=== PATIENT | female | born 1985 | race Caucasian/White ===

== ENCOUNTER 2018-12-20 11:47 | Emergency (ER) | payer MEDICAID ==
[2018-12-20 12:08] VITALS: BP 147/104
[2018-12-20] MEDS ORDERED: SODIUM CHLORIDE 0.9% 1,000 ML IV ONE (12:50)
[2018-12-20] MEDS ORDERED: IOVERSOL 320 100 ML VIAL IVP ONE (13:16)
--- NOTE | 2018-12-20 13:24 | ED Physician Documentation ---
PD HPI CHEST PAIN - Stated complaint Stated Complaint: WEAK/CHEST PAIN - Chief complaint Chief Complaint: Cardiac - History obtained from History obtained from: Patient - Additional information Additional information: The patient recently arrived into our area 1 day ago from [facility]. The patient was recently treated at their facility for endocarditis, the patient was supposed to have 6 weeks of IV antibiotics but the patient chose to leave the hospital AGAINST MEDICAL ADVICE and then continue to use heroin and subsequently came to our area. This is a 33-year-old female who presents to our emergency department with complaints of ongoing chest pain, dyspnea on exertion and generalized weakness over the past several weeks. The patient denies fevers or chills. The patient does report bilateral arm pain and reports having upper extremity blood clots and is not on any anticoagulation. Symptoms are described as severe. No other associated symptoms Review of Systems Constitutional: reports: Chills, Myalgias, Fatigue Eyes: denies: Discharge Ears: denies: Ear pain Nose: denies: Congestion Throat: denies: Sore throat Cardiac: reports: Chest pain / pressure Respiratory: reports: Dyspnea GI: denies: Abdominal Pain : denies: Dysuria Skin: denies: Laceration (s) Musculoskeletal: denies: Neck pain Neurologic: reports: Generalized weakness. denies: Focal weakness, Numbness, Difficulty speaking PD PAST MEDICAL HISTORY - Past Medical History Past Medical History: Yes Cardiovascular: Other Other Past Medical History: Hep C, endocarditis - Past Surgical History Past Surgical History: Yes HEENT: Tonsil/Adenoidectomy - Present Medications Home Medications: Ambulatory Orders Medication Instructions Recorded Confirmed No Known Home Medications 12/20/18 12/20/18 - Allergies Allergies/Adverse Reactions: Allergies Allergy/AdvReac Type Severity Reaction Status Date / Time No Known Drug Allergies Allergy Verified 12/20/18 12:07 - Social History Does the pt smoke?: Yes Smoking Status: Current every day smoker Does the pt drink ETOH?: No Does the pt have substance abuse?: Yes Substance Use and Type: Heroin - Immunizations Immunizations are current?: No PD ED PE NORMAL - General General: Alert and oriented X 3, No acute distress - HEENT HEENT: Atraumatic, PERRL, EOMI, Ears normal - Neck Neck: Supple, no meningeal sign - Cardiac Cardiac: RRR, Strong equal pulses - Respiratory Respiratory: No respiratory distress, Clear bilaterally - Abdomen Abdomen: Soft, Non tender - Back Back: No CVA TTP - Derm Derm: Normal color - Extremities Extremities: No deformity, Normal ROM s pain - Neuro Neuro: Alert and oriented X 3, No motor deficit, Normal speech - Psych Psych: Normal mood Results - Vitals Vitals: Vital Signs - 24 hr 12/20/18 12:04 Temperature 36 C L Heart Rate 108 H Respiratory 18 Rate Blood Pressure 147/104 H O2 Saturation 99 Oxygen O2 Source Room air - EKG (time done) 12:50 Rate: Rate (enter#) Rhythm: NSR [place]: Normal Intervals: Normal [place] QRS: Normal Ischemia: Normal ST segments - Labs Labs: Laboratory Tests 12/20/18 12/20/18 14:10 14:30 WBC 6.9 RBC 4.59 Hgb 13.3 Hct 39.1 MCV 85.1 MCH 29.1 MCHC 34.2 RDW 15.4 H Plt Count 110 L MPV 7.3 L Neut # (Auto) 3.7 Lymph # (Auto) 2.5 [place] # (Auto) 0.5 Eos # (Auto) 0.1 Baso # (Auto) 0.1 Absolute Nucleated RBC 0.00 Nucleated RBC % 0.1 PT 11.5 INR 1.0 PD MEDICAL DECISION MAKING - ED course ED course: Records were obtained from the hospital in [place] with the patient was treated. It appears that the patient did not have endocarditis on KEM, it was just suspected but had septic pulmonary embolisms from a right arm abscess which was drained and packed and MRSA Bacteremia. I discussed the case with our hospitalist Who recommends transfer to To a higher level of care given the patient's need for a PICC line, KEM and most likely ID consult and possibly a consultation by pulmonology or cardiothoracic surgery The patient Has poor venous access, numerous nurses attempted IV placement without success and the patient was seen by the anesthesia team who attempted IV access by ultrasound and had difficulty. The patient declined any further IV attempts or central line attempts. This obviously limited our ability to properly evaluate the patient in the emergency department. I discussed with the patient the plan for transfer to [facility] for further workup, PICC line placement and further management. The patient has decided to leave AGAINST MEDICAL ADVICE. I explained to her the reason for the workup and the importance of further testing to assess her condition and underlying issues to see if they have worsened or are improving. I explained that the patient will require ongoing IV antibiotics. I explained that I was in the process of talking with [facility] for transfer to their hospital given her complex condition for ongoing workup and management. The patient understands all this and has decided to leave our emergency department AGAINST MEDICAL ADVICE. The patient is of sound mind and her sister who is accompanying her is in agreement with this plan. I explained to her that without further treatment she is at risk for grave disability or . The patient understands and is capable of making this decision. I advised that she should return at any point for reevaluation Departure - Departure Disposition: 07 Against Medical Advice Clinical Impression: IVDU (intravenous drug user), Septic arterial embolism, MRSA bacteremia Chest pain Qualifiers: Chest pain type: unspecified Qualified Code(s): R07.9 - Chest pain, unspecified Condition: Fair Comments: You are leaving against my advice for further workup in the emergency department and transfer to another Medical Center for ongoing treatment of your multiple medical problems related to IV drug use. Please return at any point for reevaluation and further management. You understand that by leaving without further treatment and transfer you are risk for a worsening condition which if left untreated could result in significant disability or
[2018-12-20 14:15] LABS: BASOPHILS # (AUTO) 0.1 10^3/uL (0.0-0.1); BASOPHILS % (AUTO) 1.2 %; EOSINOPHILS # (AUTO) 0.1 10^3/uL (0.0-0.7); HGB - HEMOGLOBIN 13.3 g/dL (12.0-16.0); LYMPHOCYTES # (AUTO) 2.5 10^3/uL (1.5-3.5); LYMPHOCYTES % (AUTO) 36.8 %; MEAN CORPUSCULAR HEMOGLOBIN 29.1 pg (27.0-31.0); MEAN CORPUSCULAR HGB CONC 34.2 g/dL (32.0-36.0); MEAN CORPUSCULAR VOLUME 85.1 fL (81.0-99.0); MEAN PLATELET VOLUME 7.3 fL (7.9-10.8); MONOCYTES # (AUTO) 0.5 10^3/uL (0.0-1.0); MONOCYTES % (AUTO) 6.7 %; NEUTROPHILS # (AUTO) 3.7 10^3/uL (1.5-6.6); NEUTROPHILS % (AUTO) 54.3 %; PLT - PLATELET COUNT 110 10^3/uL (130-450); RED BLOOD COUNT 4.59 10^6/uL (4.20-5.40); RED CELL DISTRIBUTION WIDTH 15.4 % (12.0-15.0); WHITE BLOOD COUNT 6.9 x10^3/uL (4.8-10.8)
[2018-12-20 14:44] LABS: PT - PROTHROMBIN TIME 11.5 secs (9.9-12.6)
[2018-12-20 14:53] LABS: ALBUMIN 3.5 g/dL (3.2-5.5); ALBUMIN/GLOBULIN RATIO 0.7 (1.0-2.2); BILIRUBIN,TOTAL 0.5 mg/dL (0.2-1.0); CREATININE 0.6 mg/dL (0.4-1.0); TOTAL PROTEIN 8.2 g/dL (6.7-8.2)
[2018-12-20 15:02] LABS: HCG,QUALITATIVE BLOOD NEGATIVE
== END 2018-12-20 14:59 | disposition left against medical advice (07) ==
LOC: ED 11:47
DX: F11.90 Opioid use, unspecified, uncomplicated (principal); I76 Septic arterial embolism; A49.02 Methicillin resistant Staphylococcus aureus infection, unspecified site; R07.9 Chest pain, unspecified; B19.20 Unspecified viral hepatitis C without hepatic coma
CPT/HCPCS: 36415; 80053; 82550; 83605; 83690; 83880; 84484; 84703; 85025; 85610; 87040; 93005; 99282; 99284

== ENCOUNTER 2019-11-13 15:22 | Emergency (ER) | payer MEDICAID ==
[2019-11-13 15:36] VITALS: BP 126/85
--- NOTE | 2019-11-13 16:11 | ED Physician Documentation ---
PD HPI PED ILLNESS - Stated complaint Stated Complaint: SORE THROAT/COUGH - Chief complaint Chief Complaint: Heent - History obtained from History obtained from: Patient (Sick for 2 days with sore throat and cough, the whole family is sick with a similar illness. No fevers.) Review of Systems Constitutional: denies: Fever, Chills Nose: reports: Rhinorrhea / runny nose Throat: reports: Sore throat Respiratory: reports: Cough. denies: Dyspnea PD PAST MEDICAL HISTORY - Past Medical History Cardiovascular: Other - Past Surgical History Past Surgical History: Yes HEENT: Tonsil/Adenoidectomy - Present Medications Home Medications: Ambulatory Orders Medication Instructions Recorded Confirmed No Known Home Medications 12/20/18 12/20/18 - Allergies Allergies/Adverse Reactions: Allergies Allergy/AdvReac Type Severity Reaction Status Date / Time No Known Drug Allergies Allergy Verified 11/13/19 15:36 - Social History Does the pt smoke?: Yes Smoking Status: Current every day smoker Does the pt drink ETOH?: No Does the pt have substance abuse?: Yes - Immunizations Immunizations are current?: No PD ED PE NORMAL - Vitals Vital signs reviewed: Yes - General General: Alert and oriented X 3, No acute distress - HEENT HEENT: Other (Oropharynx normal, status post remote tonsillectomy) - Respiratory Respiratory: No respiratory distress, Clear bilaterally - Abdomen Abdomen: Non tender - Neuro Neuro: Alert and oriented X 3, Normal speech Results - Vitals Vitals: Vital Signs - 24 hr 11/13/19 15:32 Temperature 36.7 C Heart Rate 66 Respiratory 16 Rate Blood Pressure 126/85 H O2 Saturation 99 Oxygen O2 Source Room air - Labs Labs: Laboratory Tests 11/13/19 15:35 Group A Strep Rapid Negative Departure - Departure Disposition: Home, Self Care Clinical Impression: Viral URI Condition: Good Record reviewed to determine appropriate education?: Yes Instructions: ED Viral Syndrome Comments: Tylenol or ibuprofen as needed for pain, return for new or worsening symptoms. Follow-up with your doctor in a week if not better.
[2019-11-13 16:15] LABS: RAPID STREP SCREEN Negative (Negative)
== END 2019-11-13 16:41 | disposition home or self-care (01) ==
LOC: ED 15:22
DX: J06.9 Acute upper respiratory infection, unspecified (principal); F17.200 Nicotine dependence, unspecified, uncomplicated
CPT/HCPCS: 87070; 87430; 99282; 99283

== ENCOUNTER 2020-05-19 19:43 | Emergency (ER) | payer MEDICAID ==
[2020-05-19 19:52] VITALS: BP 147/92
[2020-05-19] MEDS ORDERED: BACITRACIN ZINC OINT 1 PACKET TOP STA (20:08)
[2020-05-19] MEDS ORDERED: LIDOCAINE 1%-EPI 1:100000 20 ML MDV SUBQ STA (20:08)
[2020-05-19] MEDS ORDERED: TETANUS/DIPHTHERIA/PERTUSSIS 0.5 ML SYRINGE IM ONE (20:08)
[2020-05-19] MEDS ORDERED: ACETAMINOPHEN 325 MG TABLET PO STA (20:14)
--- NOTE | 2020-05-19 20:22 | ED Physician Documentation ---
History of Present Illness - Stated complaint Stated Complaint: R FINGER LAC - Chief complaint Chief Complaint: Laceration - History obtained from History obtained from: Patient - History of Present Illness Timing: Prior to arrival, How many hours ago (2) - Additonal information Additional information: 34-year-old female presents to the emergency department with chief complaint of right index finger laceration. Patient reports that she was washing dishes when a glass broke at home.Unknown last tetanus. PD PAST MEDICAL HISTORY - Past Medical History Cardiovascular: Other - Past Surgical History Past Surgical History: Yes HEENT: Tonsil/Adenoidectomy - Present Medications Home Medications: Ambulatory Orders Medication Instructions Recorded Confirmed No Known Home Medications 12/20/18 12/20/18 - Allergies Allergies/Adverse Reactions: Allergies Allergy/AdvReac Type Severity Reaction Status Date / Time No Known Drug Allergies Allergy Verified 11/13/19 15:36 - Social History Does the pt smoke?: Yes Smoking Status: Current every day smoker Does the pt drink ETOH?: No Does the pt have substance abuse?: Yes - Immunizations Immunizations are current?: No PD ED PE EXPANDED - Extremities Extremities: Right finger(s) (V shaped lac Right index finger medial side. Measures approximately 4 cm long.Normal flexion and extension against resistance of digit at MCP, PIP and DIP.CMS T preserved. Brisk cap refill.) Results - Vitals Vitals: Vital Signs - 24 hr 05/19/20 19:48 Temperature 37.4 C Heart Rate 111 H Respiratory 18 Rate Blood Pressure 147/92 H O2 Saturation 97 Oxygen O2 Source Room air Procedures - Laceration (location) right index finger Wound type: Flap, Other (4 cm V shaped) Neurovascular status: Sensory intact, Motor intact, Vascular intact Tendon involvement: Tendon intact Anesthesia: Lidocaine 1% with epi Wound Preparation: Chlorhexadine, Irrigated copiously NS Skin layer closure: Nylon, Interrupted, Sutures - enter # (7) Other: Patient tolerated well, No complications, Neurovascular intact Complexity: Simple PD MEDICAL DECISION MAKING - ED course Complexity details: re-evaluated patient, d/w patient ED course: 4-year-old female here with a right index finger laceration sustained when washing dishes at home. A glass broke. - This is a V shaped flap black measuring about 4 cm. 7 simple interrupted sutures were placed to close the wound. - Patient is neurovascularly intact on exam without evidence of tendon or nerve injury. - Tetanus updated today in the emergency department. Given timely closure of the wound and clean appearance will defer any empiric antibiotics- Aluminum finger splint placed to help protect the laceration while it heals. We discussed emergent return precautions for concerns of infection. Sutures to be removed in 7 to 10 days. Departure - Departure Disposition: 01 Home, Self Care Clinical Impression: Finger laceration Qualifiers: Encounter type: initial encounter Finger: index finger Damage to nail status: without damage Foreign body presence: without foreign body Laterality: right Qualified Code(s): S61.210A - Laceration without foreign body of right index finger without damage to nail, initial encounter Condition: Stable Instructions: ED Laceration Repair Infec Comments: Tia you have 7 sutures placed in your laceration. In 24 hours you may wash your hand with warm soap and water. Apply the antibiotic ointment than the bandage and reapply the splint. Suture should be removed in 7 to 10 days. Please avoid submerging your hand and. Because this was closed in a timely fashion I do not recommend antibiotics today. Your tetanus was however updated. Return to the emergency department if you develop finger swelling, have increased pain, milky drainage finger redness or any fevers or other concerns of infection. You may take Tylenol or ibuprofen [id number] for pain control.
== END 2020-05-19 21:06 | disposition home or self-care (01) ==
LOC: ED 19:43
DX: S61.210A Laceration without foreign body of right index finger without damage to nail, initial encounter (principal); W25.XXXA Contact with sharp glass, initial encounter; Y93.G1 Activity, food preparation and clean up; Y92.000 Kitchen of unspecified non-institutional (private) residence as the place of occurrence of the external cause; Z23 Encounter for immunization; F17.200 Nicotine dependence, unspecified, uncomplicated
CPT/HCPCS: 12002; 90471; 90715; 99281; 99283; A9270

== ENCOUNTER 2020-05-29 18:19 | Emergency (ER) | payer MEDICAID ==
[2020-05-29 18:26] VITALS: BP 151/78
--- NOTE | 2020-05-29 18:40 | ED Physician Documentation ---
PD HPI WOUND RECHECK - Stated complaint Stated Complaint: SUTURE REMOVAL - Chief complaint Chief Complaint: Laceration - Histroy obtained from History obtained from: Patient - History of Present Illness Location: Other (R index finger 11 days ago) Pain level max: 0 Pain level now: 0 Associated symptoms: No: Fever, Redness, Swelling, Drainage, Pain - Additional information Additional information: Here for suture removal. No complaints Review of Systems Constitutional: denies: Fever PD PAST MEDICAL HISTORY - Past Medical History Cardiovascular: Other - Past Surgical History Past Surgical History: Yes HEENT: Tonsil/Adenoidectomy - Present Medications Home Medications: Ambulatory Orders Medication Instructions Recorded Confirmed No Known Home Medications 12/20/18 12/20/18 - Allergies Allergies/Adverse Reactions: Allergies Allergy/AdvReac Type Severity Reaction Status Date / Time No Known Drug Allergies Allergy Verified 05/29/20 18:23 - Social History Does the pt smoke?: Yes Smoking Status: Current every day smoker Does the pt drink ETOH?: No Does the pt have substance abuse?: Yes - Immunizations Immunizations are current?: No - POLST Patient has POLST: No PD ED PE NORMAL - Vitals Vital signs reviewed: Yes - General General: Alert and oriented X 3 - HEENT HEENT: Moist mucous membranes - Derm Derm: Warm and dry - Extremities Extremities: Other (Right index finger with a well-healed laceration. No signs of infection) Results - Vitals Vitals: Vital Signs - 24 hr 05/29/20 18:23 Temperature 36.6 C Heart Rate 67 Respiratory 16 Rate Blood Pressure 151/78 H O2 Saturation 99 Oxygen O2 Source Room air PD MEDICAL DECISION MAKING - ED course Complexity details: considered differential, d/w patient ED course: Sutures removed by nursing staff. Tolerated well. No complications. No signs of infection. Patient counseled regarding signs and symptoms for which I believe and urgent re-evaluation would be necessary. Patient with good understanding of and agreement to plan and is comfortable going home at this time This document was made in part using voice recognition software. While efforts are made to proofread this document, sound alike and grammatical errors may occur. Departure - Departure Disposition: 01 Home, Self Care Clinical Impression: Visit for suture removal Condition: Good Instructions: ED Stap Removal No Complication Follow-Up: your,doctor as needed [Other] Comments: Return if you notice redness swelling or drainage from the wound. Keep the wound clean. Discharge Date/Time: 05/29/20 18:52
== END 2020-05-29 18:52 | disposition home or self-care (01) ==
LOC: ED 18:19
DX: S61.210D Laceration without foreign body of right index finger without damage to nail, subsequent encounter (principal); F17.200 Nicotine dependence, unspecified, uncomplicated; Z48.02 Encounter for removal of sutures

== ENCOUNTER 2020-12-10 13:07 | Emergency (ER) | payer MEDICAID ==
[2020-12-10 13:12] VITALS: BP 162/99
[2020-12-10 13:30] LABS: BILIRUBIN,URINE NEGATIVE (NEGATIVE); GLUCOSE, URINE (UA) NEGATIVE (NEGATIVE); KETONES,URINE (UA) NEGATIVE (NEGATIVE); LEUKOCYTE ESTERASE, URINE SMALL (NEGATIVE); NITRITE,URINE POSITIVE (NEGATIVE); OCCULT BLOOD,URINE NEGATIVE (NEGATIVE); PROTEIN,URINE NEGATIVE (NEGATIVE); UROBILINOGEN,URINE 1 (NORMAL) E.U./dL (NORMAL)
[2020-12-10 13:36] LABS: CLARITY,URINE SL. CLOUDY (CLEAR); HCG UR QUAL NEGATIVE
[2020-12-10 13:37] LABS: BACTERIA,URINE Many /HPF (None Seen); RBC,URINE None Seen /HPF (0-5); SQUAMOUS EPITHELIAL CELL,UR FEW Squamous (<= Few)
--- NOTE | 2020-12-10 14:27 | ED Physician Documentation ---
History of Present Illness - Stated complaint Stated Complaint: FEMALE - Chief complaint Chief Complaint: UTI - History obtained from History obtained from: Patient - History of Present Illness Timing: How many weeks ago (2) Pain level max: 4 Pain level now: 1 - Additonal information Additional information: 34-year-old female presents to the emergency department complaint of dysuria for the past 2 weeks. Improved somewhat with Pyridium, but then recurred. No back pain. No nausea or vomiting. Denies any possibility of . No STD exposure. No vaginal bleeding or discharge. Review of Systems Constitutional: denies: Fever, Chills Respiratory: denies: Cough GI: denies: Vomiting, Diarrhea : reports: Dysuria, Frequency. denies: Now EGA PD PAST MEDICAL HISTORY - Past Medical History Cardiovascular: Other - Past Surgical History Past Surgical History: Yes HEENT: Tonsil/Adenoidectomy - Present Medications Home Medications: Ambulatory Orders Medication Instructions Recorded Confirmed Buprenorphine HCl/Naloxone HCl 1 each PO DAILY 12/10/20 12/10/20 [Suboxone 2-0.5 mg Sl tab] Nitrofurantoin Monohyd/M-Cryst 100 mg PO BID #10 capsule 12/10/20 [Macrobid 100 mg Capsule] Sertraline [Zoloft] 25 mg PO DAILY 12/10/20 12/10/20 - Allergies Allergies/Adverse Reactions: Allergies Allergy/AdvReac Type Severity Reaction Status Date / Time No Known Drug Allergies Allergy Verified 12/10/20 13:08 - Social History Does the pt smoke?: Yes Smoking Status: Current every day smoker Does the pt drink ETOH?: No Does the pt have substance abuse?: Yes - Immunizations Immunizations are current?: No - POLST Patient has POLST: No PD ED PE NORMAL - Vitals Vital signs reviewed: Yes - General General: Alert and oriented X 3, No acute distress, Well developed/nourished - HEENT HEENT: PERRL, Moist mucous membranes - Neck Neck: Supple, no meningeal sign - Respiratory Respiratory: No respiratory distress - Abdomen Abdomen: Soft, Non tender, Non distended - Back Back: No CVA TTP - Derm Derm: Warm and dry - Neuro Neuro: Alert and oriented X 3 - Psych Psych: Normal mood, Normal affect Results - Vitals Vitals: Vital Signs - 24 hr 12/10/20 13:09 Temperature 36.4 C L Heart Rate 86 Respiratory 18 Rate Blood Pressure 162/99 H O2 Saturation 98 Oxygen O2 Source Room air - Labs Labs: Laboratory Tests 12/10/20 13:23 Urine Color YELLOW Urine Clarity SL. CLOUDY Urine pH 6.0 Ur Specific [employer] >=1.030 H Urine Protein NEGATIVE Urine Glucose (UA) NEGATIVE Urine Ketones NEGATIVE Urine Occult Blood NEGATIVE Urine Nitrite POSITIVE H Urine Bilirubin NEGATIVE Urine Urobilinogen 1 (NORMAL) Ur Leukocyte Esterase SMALL H Urine RBC None Seen Urine WBC 0-3 Ur Squamous Epith Cells FEW Squamous Urine Bacteria Many H Ur Microscopic Review INDICATED Urine Culture Comments INDICATED Urine HCG, Qual NEGATIVE PD MEDICAL DECISION MAKING - ED course Complexity details: reviewed results, considered differential, d/w patient ED course: Patient with a UTI. We will place on antibiotics for home. Counseled regarding alternative diagnoses and the need for follow-up if she fails to improve as expected. No evidence of pyelonephritis or sepsis. Patient counseled regarding signs and symptoms for which I believe and urgent re-evaluation would be necessary. Patient with good understanding of and agreement to plan and is comfortable going home at this time This document was made in part using voice recognition software. While efforts are made to proofread this document, sound alike and grammatical errors may occur. Departure - Departure Disposition: Home, Self Care Clinical Impression: UTI (urinary tract infection) Qualifiers: Urinary tract infection type: acute cystitis Hematuria presence: without hematuria Qualified Code(s): N30.00 - Acute cystitis without hematuria Condition: Good Instructions: ED UTI Cystitis Female Follow-Up: your,doctor in 1 week [Other] Prescriptions: Nitrofurantoin Monohyd/M-Cryst [Macrobid 100 mg Capsule] 100 mg PO BID #10 capsule Comments: Take all antibiotics until gone. Return if you worsen. Follow-up with your doctor for further care. If you fail to improve as expected, you should have further testing performed including a likely pelvic exam for alternative explanations. Discharge Date/Time: 12/10/20 14:31
== END 2020-12-10 14:31 | disposition home or self-care (01) ==
LOC: ED 13:07
DX: N30.00 Acute cystitis without hematuria (principal); F17.200 Nicotine dependence, unspecified, uncomplicated
CPT/HCPCS: 81001; 81003; 81025; 87086; 87181; 99283; 99284

== ENCOUNTER 2021-05-09 02:06 | Emergency (ER) | payer MEDICAID ==
[2021-05-09 02:24] VITALS: BP 161/107
[2021-05-09 03:10] LABS: BILIRUBIN,URINE NEGATIVE (NEGATIVE); GLUCOSE, URINE (UA) NEGATIVE (NEGATIVE); KETONES,URINE (UA) NEGATIVE (NEGATIVE); LEUKOCYTE ESTERASE, URINE NEGATIVE (NEGATIVE); NITRITE,URINE POSITIVE (NEGATIVE); OCCULT BLOOD,URINE TRACE-INTA (NEGATIVE); PROTEIN,URINE NEGATIVE (NEGATIVE); UROBILINOGEN,URINE 1 (NORMAL) E.U./dL (NORMAL)
[2021-05-09 03:11] LABS: BACTERIA,URINE Many /HPF (None Seen); CLARITY,URINE SL. CLOUDY (CLEAR); CRYSTALS,URINE 6-10 Calcium Oxalate /LPF; RBC,URINE 0-5 /HPF (0-5); SQUAMOUS EPITHELIAL CELL,UR RARE Squamous (<= Few); WBC,URINE 0-3 /HPF (0-5)
[2021-05-09] MEDS ORDERED: SULFAMETH/TRIMETH DS 800/160 MG TABLET PO STA (03:36)
--- NOTE | 2021-05-09 03:39 | ED Physician Documentation ---
History of Present Illness - Stated complaint Stated Complaint: FEMALE - Chief complaint Chief Complaint: UTI - History obtained from History obtained from: Patient - Additonal information Additional information: Patient comes emergency department chief complaint of left forearm abscess and UTI. She states she has been noticing foul-smelling, cloudy urine for the last few days and that since shooting up heroin Days ago, she has noticed a red swollen area on her left forearm. She states that she squeezed the area and was able to get quite a bit of purulent appearing material to express from it, but now the area is closed up and she is concerned it may be more fluid in there. No fevers or chills. No other complaints at this time. Review of Systems Ten Systems: 10 systems reviewed and negative Constitutional: reports: Reviewed and negative Eyes: reports: Reviewed and negative Ears: reports: Reviewed and negative Nose: reports: Reviewed and negative Throat: reports: Reviewed and negative Cardiac: reports: Reviewed and negative Respiratory: reports: Reviewed and negative GI: reports: Reviewed and negative : reports: Other (Foul-smelling urine). denies: Hematuria, Discharge Skin: reports: Other (Abscess) Musculoskeletal: reports: Reviewed and negative Neurologic: reports: Reviewed and negative Psychiatric: reports: Reviewed and negative Endocrine: reports: Reviewed and negative Immunocompromised: reports: Reviewed and negative PD PAST MEDICAL HISTORY - Past Medical History Past Medical History: Yes Cardiovascular: Other Psych: Depression - Past Surgical History Past Surgical History: Yes HEENT: Tonsil/Adenoidectomy - Present Medications Home Medications: Ambulatory Orders Medication Instructions Recorded Confirmed Sertraline [Zoloft] 25 mg PO DAILY 12/10/20 12/10/20 Sulfamethox/Trimeth 800/160 1 each PO BID #14 tablet 05/09/21 [Bactrim Ds 800/160] - Allergies Allergies/Adverse Reactions: Allergies Allergy/AdvReac Type Severity Reaction Status Date / Time No Known Drug Allergies Allergy Verified 05/09/21 02:28 - Social History Does the pt smoke?: Yes Smoking Status: Current every day smoker Does the pt drink ETOH?: Yes Does the pt have substance abuse?: Yes Substance Use and Type: Marijuana, Heroin - Immunizations Immunizations are current?: No - POLST Patient has POLST: No PD ED PE NORMAL - Vitals Vital signs reviewed: Yes - General General: Alert and oriented X 3, No acute distress, Well developed/nourished - HEENT HEENT: Atraumatic, PERRL, EOMI, Moist mucous membranes - Neck Neck: Supple, no meningeal sign - Cardiac Cardiac: Strong equal pulses - Respiratory Respiratory: No respiratory distress - Abdomen Abdomen: Soft, Non tender, Non distended - Derm Derm: Warm and dry, Other (3 cm diameter area of induration, elevation, and apical fluctuance. No open wound. Erythema and approximately a 3 cm radius from the apex.) - Extremities Extremities: No deformity - Neuro Neuro: Alert and oriented X 3 - Psych Psych: Normal mood, Normal affect Results - Vitals Vitals: Vital Signs - 24 hr 05/09/21 02:17 Temperature 36.8 C Heart Rate 101 H Respiratory 18 Rate Blood Pressure 161/107 H O2 Saturation 97 Oxygen O2 Source Room air - Labs Labs: Laboratory Tests 05/09/21 02:29 Urine Color YELLOW Urine Clarity SL. CLOUDY Urine pH 6.0 Ur Specific [place] >=1.030 H Urine Protein NEGATIVE Urine Glucose (UA) NEGATIVE Urine Ketones NEGATIVE Urine Occult Blood TRACE-INTA Urine Nitrite POSITIVE H Urine Bilirubin NEGATIVE Urine Urobilinogen 1 (NORMAL) Ur Leukocyte Esterase NEGATIVE Urine RBC 0-5 Urine WBC 0-3 Ur Squamous Epith Cells RARE Squamous Urine Crystals 6-10 Calcium Oxalate Urine Bacteria Many H Ur Microscopic Review INDICATED Urine Culture Comments INDICATED PD MEDICAL DECISION MAKING - ED course Complexity details: reviewed results, re-evaluated patient, considered differential, d/w patient ED course: Urinalysis was positive for nitrates and bacteria and patient was started on Bactrim for this. I&D was performed of the apparent abscess, but produced only a slight amount of purulent fluid, admixed with serous fluid. Incision site was packed and patient was advised of wound care. We have discussed that packing should be removed in 2 days. We discussed the usual indications for return. Departure - Departure Disposition: 01 Home, Self Care Clinical Impression: Cellulitis Qualifiers: Site of cellulitis: extremity Site of cellulitis of extremity: upper extremity Laterality: left Qualified Code(s): L03.114 - Cellulitis of left upper limb Urinary tract infection Qualifiers: Urinary tract infection type: acute cystitis Hematuria presence: without hematuria Qualified Code(s): N30.00 - Acute cystitis without hematuria Condition: Stable Instructions: ED UTI Cystitis Female, ED Infec Skin Cellulitis Prescriptions: Sulfamethox/Trimeth 800/160 [Bactrim Ds 800/160] 1 each PO BID #14 tablet Comments: Not much pus came out of your abscess cavity today. You had been started on antibiotics for urinary tract infection, which should cover any infection that is left in your skin, as well. Your wound has been packed, but the packing should be removed in 2 days. You do not need to repack the wound after this.
== END 2021-05-09 04:09 | disposition home or self-care (01) ==
LOC: ED 02:06
DX: L02.414 Cutaneous abscess of left upper limb (principal); L03.114 Cellulitis of left upper limb; N30.00 Acute cystitis without hematuria; F17.200 Nicotine dependence, unspecified, uncomplicated
CPT/HCPCS: 10061; 81001; 87086; 87181; 99283; 99284; A9270; 81003

== ENCOUNTER 2021-06-16 05:28 | Emergency (ER) | payer MEDICAID ==
[2021-06-16 07:02] LABS: BILIRUBIN,URINE NEGATIVE (NEGATIVE); GLUCOSE, URINE (UA) NEGATIVE (NEGATIVE); KETONES,URINE (UA) NEGATIVE (NEGATIVE); LEUKOCYTE ESTERASE, URINE NEGATIVE (NEGATIVE); NITRITE,URINE POSITIVE (NEGATIVE); OCCULT BLOOD,URINE TRACE-INTA (NEGATIVE); PROTEIN,URINE NEGATIVE (NEGATIVE); UROBILINOGEN,URINE 0.2 (NORMAL) E.U./dL (NORMAL)
[2021-06-16 07:05] LABS: HCG UR QUAL NEGATIVE
--- NOTE | 2021-06-16 07:07 | ED Physician Documentation ---
PD HPI SKIN - Stated complaint Stated Complaint: R ARM PX, FEMALE - Chief complaint Chief Complaint: Wound - History obtained from History obtained from: Patient - Additional information Additional information: 35-year-old woman with history of IV drug use presents with right arm abscess And suprapubic discomfort with urination. Also with foul smell and discoloration in the urine. Patient denies fevers, back pain, nausea, other symptoms. She has had abscess in the same spot before. Review of Systems Constitutional: denies: Fever, Chills : reports: Dysuria Skin: reports: Other (Abscess) Musculoskeletal: reports: Extremity pain PD PAST MEDICAL HISTORY - Past Medical History Past Medical History: Yes Cardiovascular: Other Psych: Depression - Past Surgical History Past Surgical History: Yes HEENT: Tonsil/Adenoidectomy - Present Medications Home Medications: Ambulatory Orders Medication Instructions Recorded Confirmed Sertraline [Zoloft] 25 mg PO DAILY 12/10/20 06/16/21 Buprenorphine HCl/Naloxone HCl 1 tab PO DAILY 06/16/21 06/16/21 [Suboxone 8-2 mg Tab] cephALEXin [Keflex] 500 mg PO Q6H #28 06/16/21 - Allergies Allergies/Adverse Reactions: Allergies Allergy/AdvReac Type Severity Reaction Status Date / Time No Known Drug Allergies Allergy Verified 05/09/21 02:28 - Social History Does the pt smoke?: Yes Smoking Status: Current every day smoker Does the pt drink ETOH?: Yes Does the pt have substance abuse?: Yes Substance Use and Type: Heroin - Immunizations Immunizations are current?: No - POLST Patient has POLST: No PD ED PE NORMAL - Vitals Vital signs reviewed: Yes - General General: Alert and oriented X 3, No acute distress, Well developed/nourished - HEENT HEENT: Atraumatic, PERRL, EOMI - Neck Neck: Supple, no meningeal sign - Abdomen Abdomen: Non tender, Non distended - Back Back: No CVA TTP - Derm Derm: Normal color, Warm and dry, Other (5 cm fluctuant swelling to anterior right arm with overlying cellulitis) - Extremities Extremities: No deformity - Neuro Neuro: Alert and oriented X 3, No motor deficit, No sensory deficit - Psych Psych: Normal mood, Normal affect Results - Vitals Vitals: Vital Signs - 24 hr 06/16/21 06/16/21 05:39 06:01 Temperature 37 C 37 C Heart Rate 113 H 113 H Respiratory 18 Rate Blood Pressure 159/101 H 159/101 H O2 Saturation 99 99 Oxygen O2 Source Room air - Labs Labs: Laboratory Tests 06/16/21 06/16/21 05:45 05:45 Urine Color YELLOW Urine Clarity SL. CLOUDY Urine pH 6.0 Ur Specific [place] 1.025 Urine Protein NEGATIVE Urine Glucose (UA) NEGATIVE Urine Ketones NEGATIVE Urine Occult Blood TRACE-INTA Urine Nitrite POSITIVE H Urine Bilirubin NEGATIVE Urine Urobilinogen 0.2 (NORMAL) Ur Leukocyte Esterase NEGATIVE Urine RBC 0-5 Urine WBC 0-3 Ur Squamous Epith Cells MANY Squamous H Urine Crystals 11-25 Ca Carbonate Urine Bacteria Few Urine Culture Comments NOT INDICATED Urine HCG, Qual NEGATIVE Procedures - Abscess I&D (location) Upper extremity right Anterior Preparation: Betadine, Lidocaine 1%, With epi Incision: Incised with scalpel, Purulent drainage, Loculations broken, Irrigated, Culture obtained Other: Pt tolerated well, Dressing applied, Antibiotic prescribed PD MEDICAL DECISION MAKING - ED course ED course: 35-year-old woman presents with abscess and UTI. Abscess drained and wound culture sent. Return precautions given. Education given and patient will follow up with her primary doctor. Drug addiction resources provided as well. Departure - Departure Disposition: 01 Home, Self Care Clinical Impression: Abscess, UTI (urinary tract infection) Condition: Good Instructions: ED Abscess IandD Prescriptions: cephALEXin [Keflex] 500 mg PO Q6H #28 Comments: You are seen in the emergency department for abscess drainage. A wound culture was obtained and we will call you if we need to change your antibiotic. You also have a urinary tract infection. The antibiotic will cover that as well. Please return to the emergency department if you have any fevers, new or worsening symptoms or other concerns. Follow-up for wound check in 48 hours at urgent care or here.
[2021-06-16 07:26] LABS: BACTERIA,URINE Few /HPF (None Seen); CLARITY,URINE SL. CLOUDY (CLEAR); RBC,URINE 0-5 /HPF (0-5); SQUAMOUS EPITHELIAL CELL,UR MANY Squamous (<= Few); WBC,URINE 0-3 /HPF (0-5)
[2021-06-16 07:46] VITALS: BP 145/95
== END 2021-06-16 07:46 | disposition home or self-care (01) ==
LOC: ED 05:28
DX: L02.413 Cutaneous abscess of right upper limb (principal); L03.113 Cellulitis of right upper limb; N39.0 Urinary tract infection, site not specified; F17.200 Nicotine dependence, unspecified, uncomplicated
CPT/HCPCS: 10060; 81001; 81025; 87070; 87077; 87086; 87205

== ENCOUNTER 2021-07-03 23:22 | Emergency (ER) | payer MEDICAID ==
[2021-07-03 23:49] LABS: BILIRUBIN,URINE NEGATIVE (NEGATIVE); GLUCOSE, URINE (UA) NEGATIVE (NEGATIVE); KETONES,URINE (UA) NEGATIVE (NEGATIVE); LEUKOCYTE ESTERASE, URINE NEGATIVE (NEGATIVE); NITRITE,URINE NEGATIVE (NEGATIVE); OCCULT BLOOD,URINE SMALL (NEGATIVE); PROTEIN,URINE NEGATIVE (NEGATIVE); UROBILINOGEN,URINE 1 (NORMAL) E.U./dL (NORMAL)
[2021-07-03 23:50] LABS: CLARITY,URINE CLEAR (CLEAR)
[2021-07-03 23:51] LABS: HCG UR QUAL NEGATIVE
[2021-07-03 23:56] LABS: BACTERIA,URINE Rare /HPF (None Seen); MUCUS,URINE Few Strands; RBC,URINE 0-5 /HPF (0-5); SQUAMOUS EPITHELIAL CELL,UR MANY Squamous (<= Few); WBC,URINE 0-3 /HPF (0-5)
[2021-07-04] MEDS ORDERED: LIDOCAINE 1% 2 ML VIAL MC ONE (00:16)
[2021-07-04] MEDS ORDERED: cefTRIAXone 250 MG VIAL IM STA (00:16)
[2021-07-04] MEDS ORDERED: DOXYCYCLINE 100 MG TABLET PO STA (00:18)
[2021-07-04] MEDS ORDERED: metroNIDAZOLE 250 MG TABLET PO STA (00:18)
[2021-07-04] MEDS ORDERED: LIDOCAINE 1%-EPI 1:100000 20 ML MDV SUBQ STA (00:19)
[2021-07-04] MEDS ORDERED: KETOROLAC 30 MG/ML VIAL IM STA (00:19)
--- NOTE | 2021-07-04 00:22 | ED Physician Documentation ---
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 Also with increased frequency, foul odor for the past week with urination. Denies abdominal pain. prior hx STI. Review of Systems Constitutional: denies: Fever, Chills : reports: Dysuria, Frequency Skin: reports: Other (abcess) Musculoskeletal: denies: Back pain PD PAST MEDICAL HISTORY - Past Medical History Cardiovascular: Other Psych: Depression - Past Surgical History Past Surgical History: Yes HEENT: Tonsil/Adenoidectomy - Present Medications Home Medications: Ambulatory Orders Medication Instructions Recorded Confirmed Sertraline [Zoloft] 25 mg PO DAILY 12/10/20 07/03/21 Buprenorphine HCl/Naloxone HCl 1 tab PO DAILY 06/16/21 07/03/21 [Suboxone 8-2 mg Tab] Doxycycline Hyclate 100 mg PO BID 14 Days #28 tab 07/04/21 metroNIDAZOLE [Flagyl] 500 mg PO BID #28 tablet 07/04/21 - Allergies Allergies/Adverse Reactions: Allergies Allergy/AdvReac Type Severity Reaction Status Date / Time No Known Drug Allergies Allergy Verified 07/03/21 23:34 - Social History Does the pt smoke?: Yes Smoking Status: Current every day smoker Does the pt drink ETOH?: Yes Does the pt have substance abuse?: Yes Substance Use and Type: Heroin - Immunizations Immunizations are current?: No - POLST Patient has POLST: No PD ED PE NORMAL - Vitals Vital signs reviewed: Yes - General General: Alert and oriented X 3, No acute distress, Well developed/nourished - HEENT HEENT: Atraumatic, PERRL, EOMI - Neck Neck: Supple, no meningeal sign - Abdomen Abdomen: Non tender, Non distended - Back Back: No CVA TTP - Derm Derm: Normal color, Warm and dry, Other (BL abscesses to forearms, 2cm diameter) - Extremities Extremities: No deformity - Neuro Neuro: Alert and oriented X 3 - Psych Psych: Normal mood, Normal affect Results - Vitals Vitals: Vital Signs - 24 hr 07/03/21 07/04/21 23:25 00:32 Temperature 37.3 C 36.5 C Heart Rate 108 H 90 Respiratory 16 18 Rate Blood Pressure 147/101 H 120/83 H O2 Saturation 97 98 Oxygen O2 Source Room air - Labs Labs: Laboratory Tests 07/03/21 23:41 Urine Color DARK YELLOW Urine Clarity CLEAR Urine pH 6.0 Ur Specific [place] 1.025 Urine Protein NEGATIVE Urine Glucose (UA) NEGATIVE Urine Ketones NEGATIVE Urine Occult Blood SMALL H Urine Nitrite NEGATIVE Urine Bilirubin NEGATIVE Urine Urobilinogen 1 (NORMAL) Ur Leukocyte Esterase NEGATIVE Urine RBC 0-5 Urine WBC 0-3 Ur Squamous Epith Cells MANY Squamous H Urine Bacteria Rare Urine Mucus Few Strands Ur Microscopic Review INDICATED Urine Culture Comments NOT INDICATED Urine HCG, Qual NEGATIVE Procedures - Abscess I&D (location) Upper extremity Preparation: Confirmed with ultrasound, Betadine, Lidocaine 1% Incision: Incised with scalpel, Purulent drainage, Loculations broken, Irrigated, Packed, Culture obtained Other: Pt tolerated well, Dressing applied, Antibiotic prescribed, Other (BL forearm abscesses drained) PD MEDICAL DECISION MAKING - ED course ED course: d/w patient who requests STI treatment. declining testing since we are treating already. education given about safe sex practices and limiting risk with ivdu. patient states she is going to rehab tomorrow. i and d performed on BL forearm abscesses. will f.u for wound check in 48-72 h with RN at [facility]. return precautions given. Departure - Departure Disposition: 01 Home, Self Care Clinical Impression: STI (sexually transmitted infection), Abscess Condition: Good Instructions: STDs, ED Abscess IandD Prescriptions: Doxycycline Hyclate 100 mg PO BID 14 Days #28 tab metroNIDAZOLE [Flagyl] 500 mg PO BID #28 tablet Comments: You were seen in the emergency department for drainage of abscess and for treatment of sexually transmitted infection. Please take your antibiotics as prescribed to completion. Follow-up at urgent care for wound check in 48 to 72 hours. Return to the emergency department if you experience any new or worsening symptoms or other concerns. Discharge Date/Time: 07/04/21 01:19
[2021-07-04 00:33] VITALS: BP 120/83
== END 2021-07-04 01:19 | disposition home or self-care (01) ==
LOC: ED 23:22
DX: L02.413 Cutaneous abscess of right upper limb (principal); A64 Unspecified sexually transmitted disease; F17.200 Nicotine dependence, unspecified, uncomplicated
CPT/HCPCS: 10061; 81001; 81025; 87070; 87077; 87205; 96372; 99283; A9270; 81003; 87086

== ENCOUNTER 2021-10-04 05:27 | Emergency (ER) | payer MEDICAID ==
--- NOTE | 2021-10-04 06:09 | ED Physician Documentation ---
PD HPI SKIN - Stated complaint Stated Complaint: R ARM PX - Chief complaint Chief Complaint: Wound - History obtained from History obtained from: Patient - Additional information Additional information: 35-year-old woman with recurrent right arm abscess presents with new abscess developing over the past several days. Denies fevers, numbness or tingling of the extremity. Review of Systems Skin: reports: Other (Abscess) PD PAST MEDICAL HISTORY - Past Medical History Past Medical History: Yes Cardiovascular: Other Psych: Depression - Past Surgical History Past Surgical History: Yes HEENT: Tonsil/Adenoidectomy - Present Medications Home Medications: Ambulatory Orders Medication Instructions Recorded Confirmed Doxycycline Hyclate 100 mg PO BID 14 Days #28 tab 10/04/21 - Allergies Allergies/Adverse Reactions: Allergies Allergy/AdvReac Type Severity Reaction Status Date / Time No Known Drug Allergies Allergy Verified 10/04/21 05:33 - Social History Does the pt smoke?: Yes Smoking Status: Current every day smoker Does the pt drink ETOH?: Yes Does the pt have substance abuse?: Yes - Immunizations Immunizations are current?: No - POLST Patient has POLST: No PD ED PE NORMAL - Vitals Vital signs reviewed: Yes - General General: Alert and oriented X 3, No acute distress, Well developed/nourished - HEENT HEENT: Atraumatic, PERRL, EOMI - Derm Derm: Normal color, Warm and dry, Other (4 cm fluctuant mass consistent with abscess to right anterior arm.) - Extremities Extremities: Other (2+ bilateral radial pulses. Normal sensation, capillary refill, strength) Results - Vitals Vitals: Vital Signs - 24 hr 10/04/21 10/04/21 05:33 05:40 Temperature 36.7 C 36.7 C Heart Rate 97 97 Respiratory 16 16 Rate Blood Pressure 125/78 125/78 O2 Saturation 100 100 Oxygen O2 Source Room air Procedures - Abscess I&D (location) Upper extremity right Preparation: Betadine, Lidocaine 1%, With epi Incision: Incised with scalpel, Purulent drainage, Loculations broken, Irrigated, Packed Other: Pt tolerated well, Dressing applied, Antibiotic prescribed PD MEDICAL DECISION MAKING - ED course ED course: 35-year-old woman presents with recurrent abscess. Abscess drained without difficulty. Antibiotics prescribed. Referred to surgery clinic. Return pr ecautions given. Departure - Departure Disposition: 01 Home, Self Care Clinical Impression: Abscess Condition: Good Instructions: ED Abscess IandD Follow-Up: Tano Will MD [Provider Admit Priv/Credential] - Prescriptions: Doxycycline Hyclate 100 mg PO BID 14 Days #28 tab Comments: You were seen in the emergency department for an abscess which was drained without issues. Take your antibiotics as prescribed. You should have the wound checked in 48 hours. Keep the dressing clean and dry until that time. They will remove your packing and potentially put a new packing at that time. Please return to the emergency department if you develop fevers, new or worsening symptoms or have other concerns.
[2021-10-04] MEDS ORDERED: KETOROLAC 30 MG/ML VIAL IM STA (06:10)
[2021-10-04 06:19] VITALS: BP 127/75
== END 2021-10-04 06:24 | disposition home or self-care (01) ==
LOC: ED 05:27
DX: L02.413 Cutaneous abscess of right upper limb (principal); F17.200 Nicotine dependence, unspecified, uncomplicated
CPT/HCPCS: 10060

== ENCOUNTER 2022-03-01 09:48 | Emergency (ER) | payer MEDICAID ==
[2022-03-01 10:02] VITALS: BP 126/78
[2022-03-01] MEDS ORDERED: LIDOCAINE 1%-EPI 1:100000 20 ML MDV SUBQ STA (11:16)
[2022-03-01] MEDS ORDERED: SULFAMETH/TRIMETH DS 800/160 MG TABLET PO STA (12:16)
[2022-03-01] MEDS ORDERED: cephALEXin 250 MG CAPSULE PO STA (12:16)
--- NOTE | 2022-03-01 12:18 | ED Physician Documentation ---
PD HPI WOUND RECHECK - Stated complaint Stated Complaint: ABSCESS - Chief complaint Chief Complaint: Wound - Histroy obtained from History obtained from: Patient - Additional information Additional information: 36-year-old woman with history of IV drug abuse presents with several abscesses to the upper extremities. She has a history of MRSA and endocarditis. No fevers, chills, or systemic symptoms. The largest abscess is medial to the left bicep. She declines to talk to the social worker palliative care and plans on entering inpatient detox on Sunday. Review of Systems Constitutional: denies: Fever, Chills Eyes: reports: Reviewed and negative Throat: reports: Reviewed and negative Cardiac: reports: Reviewed and negative Respiratory: reports: Reviewed and negative PD PAST MEDICAL HISTORY - Past Medical History Past Medical History: Yes Cardiovascular: Hypertension Respiratory: None Neuro: None Endocrine/Autoimmune: None GI: None FOOD ORDER DELIVERY RUNNER: None : None HEENT: None Psych: Depression Musculoskeletal: None Derm: Other - Past Surgical History Past Surgical History: Yes HEENT: Tonsil/Adenoidectomy - Present Medications Home Medications: Ambulatory Orders Medication Instructions Recorded Confirmed Ibuprofen [Motrin] 800 mg PO Q8H PRN #30 tablet 03/01/22 Sulfamethox/Trimeth 800/160 1 each PO BID #14 tablet 03/01/22 [Bactrim Ds 800/160] cephALEXin [Keflex] 500 mg PO Q6H #28 cap 03/01/22 - Allergies Allergies/Adverse Reactions: Allergies Allergy/AdvReac Type Severity Reaction Status Date / Time No Known Drug Allergies Allergy Verified 03/01/22 09:58 - Social History Does the pt smoke?: Yes Smoking Status: Current every day smoker Does the pt drink ETOH?: Yes Does the pt have substance abuse?: Yes Substance Use and Type: Heroin - Immunizations Immunizations are current?: Yes - POLST Patient has POLST: No PD ED PE NORMAL - Vitals Vital signs reviewed: Yes - General General: Alert and oriented X 3, No acute distress - Extremities Extremities: Other (Multiple areas of small abscesses, scar tissue and track quick to both upper extremities. There are several small abscesses on the forearms and then 1 large abscess to the medial left bicep.) - Neuro Neuro: Alert and oriented X 3, Normal speech Results - Vitals Vitals: Vital Signs - 24 hr 03/01/22 09:58 Temperature 36.4 C L Heart Rate 97 Respiratory 16 Rate Blood Pressure 126/78 O2 Saturation 96 Oxygen O2 Source Room air Procedures - Abscess I&D (location) L bicep Preparation: Betadine, Lidocaine 1%, With epi Incision: Incised with scalpel, Purulent drainage, Loculations broken, Culture obtained Other: Pt tolerated well, Dressing applied, Antibiotic prescribed 3 abscesses on the right forearm and 2 abscesses on the left forearm, all small Preparation: Confirmed with ultrasound, Lidocaine 1%, With epi Incision: Incised with scalpel, Needle aspiration, Other (2 of them were stab incised with a scalpel and the remainder were small enough that needle aspiration was thought to be successful.) Other: Pt tolerated well, Dressing applied, Antibiotic prescribed PD MEDICAL DECISION MAKING - ED course ED course: 36-year-old woman with history of IV drug abuse has a total of 6 abscesses to the arms that were drained today. The largest was cultured. Presumed MRSA given her history. Even the largest was not large enough to require packing. She is going to detox on Sunday, 2 days from now. Advised to come to the emergency department Sunday morning for recheck. Departure - Departure Disposition: Home, Self Care Clinical Impression: IVDU (intravenous drug user), Abscess of multiple sites Instructions: ED Abscess IandD Prescriptions: Sulfamethox/Trimeth 800/160 [Bactrim Ds 800/160] 1 each PO BID #14 tablet cephALEXin [Keflex] 500 mg PO Q6H #28 cap Ibuprofen [Motrin] 800 mg PO Q8H PRN #30 tablet PRN Reason: PAIN &/OR FEVER Comments: I sent your prescriptions electronically to [facility]. Return here Sunday around 7 AM for wound check prior to going to inpatient detox. Sooner if worsening or if you run a fever. We are performing a wound culture, the results should be done in 48-72 hours. If antibiotic change is necessary we will call you. Return if worse in the meantime, especially if you develop increased pain, fevers, cannot keep down the medication. Otherwise follow-up with your physician in approximately 2-3 days. Discharge Date/Time: 03/01/22 12:33
== END 2022-03-01 12:33 | disposition home or self-care (01) ==
LOC: ED 09:48
DX: L02.414 Cutaneous abscess of left upper limb (principal); L02.413 Cutaneous abscess of right upper limb; F19.10 Other psychoactive substance abuse, uncomplicated; F17.200 Nicotine dependence, unspecified, uncomplicated
CPT/HCPCS: 10061; 87070; 87077; 87181; 87205; 99282; 99283; A9270